=== PATIENT | male | born 1970 | race Caucasian/White ===

== ENCOUNTER 2018-07-31 07:01 | Emergency (ER) | payer BC ==
[2018-07-31] MEDS ORDERED: Ketorolac 30 MG/ML SDV IVPUSH ONE (07:31)
[2018-07-31] MEDS ORDERED: Sodium Chloride 0.9% 1,000 ML IV ONE (07:31)
[2018-07-31] MEDS ORDERED: Tamsulosin 0.4 MG Cap.ER PO ONE (07:36)
--- NOTE | 2018-07-31 07:36 | EDM.PDOC ---
ED HPI GENERAL MEDICAL PROBLEM - General Chief Complaint: Abdominal Pain Stated Complaint: LEFT SIDE PAIN Time Seen by Provider: 07/31/18 07:09 Source of Information: Reports: Patient History Limitations: Reports: No Limitations - History of Present Illness INITIAL COMMENTS - FREE TEXT/NARRATIVE: 47 years old w m with a H/O Keystones (Ca)> 10 years ago, came to the ed due to sudden excruciating left flank pain at about 3 am. Pt took 10 mg of Oxycodan without help. No N/V/D. No dizziness. Pain is located at his left flank radiating into his left lower abdomen. No other acute med issues. BP 147/76 Pulse 75 RR 18 Pulse ox 100% on RA temp 36.7 Onset Date: 07/31/18 Onset Time: 03:00 Duration: Hour(s):, Waxing/Waning Location: Reports: Back Quality: Reports: Dull, Same as Previous Episode, Stabbing, Throbbing Severity: Moderate Improves with: Reports: None Worsens with: Reports: None Context: Reports: Other (H/O Kidneystones > 10 years ago) Associated Symptoms: Reports: No Other Symptoms - Related Data Allergies Allergy/AdvReac Type Severity Reaction Status Date / Time No Known Allergies Allergy Verified 07/31/18 07:28 Home Meds: Home Meds Acetaminophen/oxyCODONE [Percocet 325-5 MG] 1 each PO Q6HR PRN #16 tab 07/31/18 [Rx] Tamsulosin HCl [Flomax] 0.4 mg PO DAILY #4 cap.er.24h 07/31/18 [Rx] ED ROS GENERAL - Review of Systems Review Of Systems: See Below Constitutional: Reports: No Symptoms HEENT: Reports: No Symptoms Respiratory: Reports: No Symptoms Cardiovascular: Reports: No Symptoms Endocrine: Reports: No Symptoms GI/Abdominal: Reports: No Symptoms : Reports: Flank Pain (left sided) Musculoskeletal: Reports: No Symptoms Skin: Reports: No Symptoms Neurological: Reports: No Symptoms Psychiatric: Reports: No Symptoms Hematologic/Lymphatic: Reports: No Symptoms Immunologic: Reports: No Symptoms ED EXAM, RENAL/ - Physical Exam Exam: See Below Exam Limited By: Other (left flank pain) General Appearance: Alert, WD/WN, Moderate Distress Eye Exam: Bilateral Eye: Normal Inspection Ears: Normal External Exam Nose: Normal Inspection Throat/Mouth: Normal Inspection, Normal Lips, Normal Voice, No Airway Compromise Head: Atraumatic, Normocephalic Neck: Normal Inspection, Supple, Non-Tender Respiratory/Chest: No Respiratory Distress, Lungs Clear, Normal Breath Sounds Cardiovascular: Normal Peripheral Pulses, Regular Rate, Rhythm, No Edema, No Gallop, No JVD, No Murmur, No Rub GI/Abdominal: Normal Bowel Sounds, Soft, Non-Tender, No Organomegaly, No Abnormal Bruit, No Mass, Pelvis Stable (Male) Exam: Deferred Rectal (Males) Exam: Deferred Back Exam: Normal Inspection, Full Range of Motion, CVA Tenderness (L) Extremities: Normal Inspection, Normal Range of Motion, Non-Tender, No Pedal Edema Neurological: Alert, Oriented, CN II-XII Intact, Normal Cognition, Normal Gait, Normal Reflexes, No Motor/Sensory Deficits Psychiatric: Normal Affect, Normal Mood Skin Exam: Warm, Pallor Lymphatic: No Adenopathy Course - Vital Signs Text/Narrative:: 47 years old w m with a H/O Keystones (Ca)> 10 years ago, came to the ed due to sudden excruciating left flank pain at about 3 am. Pt took 10 mg of Oxycodan without help. No N/V/D. No dizziness. Pain is located at his left flank radiating into his left lower abdomen. No other acute med issues. BP 147/76 Pulse 75 RR 18 Pulse ox 100% on RA temp 36.7 PE: WNWD WM with extreme lef low abd./flank pain, dry mucosal membrane Imaging: CT abd/pelvis: 3 mm Stone 10 mm away from the left UVJ, mild hydronephrosis Labs: GFR 59 Glc 144 UA: pH 7.0 Impression: Urolithiasis with left sided flank pain, mild hydronephrosis Tx: Toradol, Flomax, NS Reexam: Improved Pain /10 Refused more pain meds. Plan: D/C with instructions Last Recorded V/S: Last Vital Signs Temp 36.2 C 07/31/18 08:51 Pulse 63 07/31/18 08:51 Resp 20 07/31/18 08:51 BP 129/72 07/31/18 08:51 Pulse Ox 94 L 07/31/18 08:51 - Orders/Labs/Meds Orders: Active Orders 24 hr Category Date Time Status Abdomen Pelvis wo Cont [CT] Stat Exams 07/31/18 07:38 Taken Saline Lock Insert [OM.PC] Routine Oth 07/31/18 07:41 Ordered Labs: Laboratory Tests 07/31/18 07/31/18 07/31/18 Range/Units 07:45 07:45 08:34 WBC 11.9 (4.5-12.0) X10-3/uL RBC 4.83 (4.30-5.75) x10(6)uL Hgb 14.1 (11.5-15.5) g/dL Hct 42.2 (30.0-51.3) % MCV 87.4 (80-96) fL MCH 29.1 (27.7-33.6) pg MCHC 33.3 (32.2-35.4) g/dL RDW 12.5 (11.5-15.5) % Plt Count 277 (125-369) X10(3)uL MPV 7.5 (7.4-10.4) fL Neut % (Auto) 83.6 H (46-82) % Lymph % (Auto) 10.2 L (13-37) % Wilkin % (Auto) 5.2 (4-12) % Eos % (Auto) 1 (1.0-5.0) % Baso % (Auto) 0 (0-2) % Neut # (Auto) 10.0 H (1.6-8.3) # Lymph # (Auto) 1.2 (0.6-5.0) # Wilkin # (Auto) 0.6 (0.0-1.3) # Eos # (Auto) 0.1 (0.0-0.8) # Baso # (Auto) 0.0 (0.0-0.2) # Sodium 142 (135-145) mmol/L Potassium 3.6 (3.5-5.3) mmol/L Chloride 105 (100-110) mmol/L Carbon Dioxide 25 (21-32) mmol/L BUN 12 (7-18) mg/dL Creatinine 1.3 (0.70-1.30) mg/dL Est Cr Clr Drug Dosing 74.82 mL/min Estimated GFR (MDRD) 59 L (>60) BUN/Creatinine Ratio 9.2 (9-20) Glucose 144 H (80-116) mg/dL Calcium 8.7 (8.6-10.2) mg/dL Urine Color Yellow (YELLOW) Urine Appearance Clear (CLEAR) Urine pH 7.0 H (5.0-6.5) Ur Specific [place] 1.015 (1.010-1.025) Urine Protein Negative (NEGATIVE) mg/dL Urine Glucose (UA) Normal (NEGATIVE) mg/dL Urine Ketones Negative (NEGATIVE) mg/dL Urine Occult Blood Negative (NEGATIVE) Urine Nitrite Negative (NEGATIVE) Urine Bilirubin Negative (NEGATIVE) Urine Urobilinogen Normal (NEGATIVE) mg/dL Ur Leukocyte Esterase Negative (NEGATIVE) Urine RBC 0-5 (0) Urine WBC 0-5 (0) Ur Squamous Epith Cells Rare (NS,R,O) Urine Bacteria Few H (NS) Meds: Medications Discontinued Medications Generic Name Dose Route Start Last Admin Trade Name Freq PRN Reason Stop Dose Admin Sodium Chloride 1,000 mls @ 999 mls/hr 07/31/18 07:31 07/31/18 07:30 Normal Saline IV 07/31/18 08:31 999 mls/hr .BOLUS ONE Administration Ketorolac Tromethamine 30 mg 07/31/18 07:31 07/31/18 07:38 Toradol IVPUSH 07/31/18 07:32 30 mg ONETIME ONE Administration Sodium Chloride 10 ml 07/31/18 07:41 07/31/18 07:42 Saline Flush FLUSH 10 ml ASDIRECTED PRN Administration Keep Vein Open Tamsulosin HCl 0.4 mg 07/31/18 07:36 07/31/18 07:44 Flomax PO 07/31/18 07:37 0.4 mg ONETIME ONE Administration Departure - Departure Time of Disposition: 08:30 Disposition: Home, Self-Care 01 Condition: Good Clinical Impression: Calcium urolithiasis - Discharge Information Prescriptions: Acetaminophen/oxyCODONE [Percocet 325-5 MG] 1 each PO Q6HR PRN #16 tab PRN Reason: 1-2 tablets for severe pain Tamsulosin HCl [Flomax] 0.4 mg PO DAILY #4 cap.er.24h Instructions: Kidney Stones, [id number], Tamsulosin capsules Referrals: PCP,None [Primary Care Provider] - Forms: ED Department Discharge Additional Instructions: Please increase water intake, take the meds as recommended, Motrin 600 mg for moderate pain, please f/u. Come back if your symptoms get worse acutely - My Orders Last 24 Hours: My Active Orders 07/31/18 07:38 Abdomen Pelvis wo Cont [CT] Stat 07/31/18 07:41 Saline Lock Insert [OM.PC] Routine - Assessment/Plan Last 24 Hours: My Active Orders 07/31/18 07:38 Abdomen Pelvis wo Cont [CT] Stat 07/31/18 07:41 Saline Lock Insert [OM.PC] Routine
[2018-07-31] MEDS ORDERED: Sodium Chloride 0.9% 10 ML Syringe FLUSH PRN (07:41)
== END 2018-07-31 09:05 | disposition home or self-care (01) ==
LOC: FB.ED 07:01
DX: N13.2 Hydronephrosis with renal and ureteral calculous obstruction (principal)
CPT/HCPCS: 36415; 74176; 80048; 81001; 85025; 96361; 96374; 99284-25; A9270-GY; J1885; J7030

== ENCOUNTER 2023-08-24 20:03 | Emergency (ER) | payer BC | END 2023-08-24 20:36 | disposition home or self-care (01) | LOC: FB.ED 20:03 | DX: S61.512A Laceration without foreign body of left wrist, initial encounter (principal); Z79.899 Other long term (current) drug therapy; W26.9XXA Contact with unspecified sharp object(s), initial encounter | CPT/HCPCS: 12002; 99282 ==